=== PATIENT | female | born 1985 | race Asian ===

== ENCOUNTER 2020-04-21 12:22 | Day surgery (SDC) | payer OTHER ==
[~2020-04-21] VITALS: Ht 167.6 cm; Wt 68.9 kg
[~2020-04-21 12:22] MED LIST: LR 1,000 ML IV ONE
[2020-04-21 13:05] LABS: HEMATOCRIT 41.9 % (36.0-47.0); HEMOGLOBIN 14.1 g/dl (12.0-15.5); MEAN CORPUSCULAR HEMOGLOBIN 31.5 pg (27.0-33.0); MEAN CORPUSCULAR HGB CONC 33.7 g/dl (32.0-36.5); MEAN CORPUSCULAR VOLUME 93.5 fl (80.0-96.0); PLATELET COUNT, AUTOMATED 256 10^3/uL (150-450); RED BLOOD COUNT 4.48 10^6/uL (4.00-5.40); WHITE BLOOD COUNT 6.5 10^3/uL (4.0-10.0)
[2020-04-21 13:29] LABS: HCG, SERUM QUALITATIVE NEGATIVE (NEGATIVE)
[2020-04-21] MEDS ORDERED: ONDANSETRON 4MG/2ML VIAL As Ordered ONE (14:23)
[2020-04-21] MEDS ORDERED: METOCLOPRAMIDE INJ 10MG/2ML VIAL (J2765 PER 1) As Ordered ONE (14:23)
[2020-04-21] MEDS ORDERED: LIDOCAINE 2% 100MG/5ML SDV (FOR ANES.) As Ordered ONE (14:23)
[2020-04-21] MEDS ORDERED: propofoL 200 MG/20 ML VIAL As Ordered ONE (14:23)
[2020-04-21] MEDS ORDERED: MIDAZOLAM INJ 2MG/2ML VIAL (J2250 PER 1MG) As Ordered ONE (14:23)
[2020-04-21] MEDS ORDERED: KETOROLAC 60MG 2ML VIAL As Ordered ONE (14:23)
[2020-04-21] MEDS ORDERED: fentaNYL 100 MCG/2 ML INJECTION (J3010) As Ordered ONE (14:24)
[2020-04-21] MEDS ORDERED: SILVER NITRATE APPLICATOR As Ordered ONE ×2 (15:02→15:10)
[2020-04-21] MEDS ORDERED: LR 1,000 ML IV SCH (15:35)
[2020-04-21] MEDS ORDERED: oxyCODONE 5MG TAB PO PRN (15:35)
[2020-04-21] MEDS ORDERED: HYDROMORPHONE HCL 0.5 MG/ 0.5 ML SYRINGE (J1170 PER 1) IV PRN (15:35)
[2020-04-21] MEDS ORDERED: fentaNYL 100 MCG/2 ML INJECTION (J3010) IV PRN (15:35)
[2020-04-21] MEDS ORDERED: KETOROLAC 30 MG/ML 1ML VIAL IV PRN (15:35)
[2020-04-21] MEDS ORDERED: ONDANSETRON 4MG/2ML VIAL IV PRN (15:35)
[2020-04-21 16:50] VITALS: BP 124/74
--- NOTE | 2020-04-21 18:44 | RO ---
OPERATIVE NOTE DATE OF OPERATION: 04/21/2020 PREOPERATIVE DIAGNOSES: 1. Abnormal uterine bleeding. 2. Possible endometrial polyp. POSTOPERATIVE DIAGNOSES: Thickened endometrial lining, otherwise normal endometrial cavity. PROCEDURE: 1. Diagnostic hysteroscopy. 2. Dilation and curettage. SURGEON: Mayank Allison DO YOUTH SERVICES SPECIALIST: None. ANESTHESIA: General. IV FLUIDS: 1 liter. URINE OUTPUT: 200 mL via straight catheterization. EBL: 5 mL. ANTIBIOTICS: None indicated. COMPLICATIONS: None. DETAILED DESCRIPTION OF PROCEDURE: The risks, benefits, indications, and alternatives of the procedure were reviewed with the patient and informed consent was obtained. The patient was taken to the operating room where general anesthesia was obtained without difficulty. The patient was then placed in the lithotomy position using Idris stirrups. The patient was then prepped and draped in usual sterile fashion. The bladder was drained using an in and out catheter. A surgical time out was then performed and the patient's identity and planned procedure were verified with the operative team. A sterile speculum was then placed into the vagina and the cervix was visualized. A single-toothed tenaculum was used to grasp the anterior lip of the cervix. The cervix was then gently serially dilated to a size 12 with a John dilator. The hysteroscope was then primed. The hysteroscope was then advanced through the endocervical canal under direct visualization. After distention of the uterus with warm saline, a systematic examination of the intrauterine cavity was performed. The tubal ostia were visualized bilaterally. The endometrial lining appeared thickened, but there were no discrete polyps identified. The hysteroscope was then removed. Fluid deficit was noted to be 20 mL of saline. A gentle sharp curettage was then performed until a uterine cri was noted in all planes. All tissue obtained was sent to pathology for review. The single-toothed tenaculum was removed and there was noted to be bleeding from the tenaculum sites. These were controlled with [id number] sutures of 0-Vicryl. Silver nitrate was also applied to the tenaculum sites and there was ultimate excellent hemostasis noted. All instruments were then removed from the patient's vagina. The patient tolerated the procedure well. At the completion of the case, the sponge, instrument, and needle counts were correct x2. The patient was taken to the PACU in stable condition. AVTAR
== END 2020-04-21 16:50 | disposition home or self-care (01) ==
LOC: M SDC 12:22
PROVIDERS: ATTEND Obstetrics & Gynecology
DX: N93.9 Abnormal uterine and vaginal bleeding, unspecified (principal); N84.0 Polyp of corpus uteri
CPT/HCPCS: 36415; 58558; 84703; 85027; 88305; J1885; J2250; J2405; J2765; J3010

== ENCOUNTER 2020-08-31 11:50 | Emergency (ER) | payer OTHER ==
[~2020-08-31] VITALS: Ht 165.1 cm; Wt 67.9 kg
[2020-08-31] MEDS ORDERED: NS 1,000 ML IV ONE (14:25)
[2020-08-31 14:56] LABS: BASO % 0.3 % (0.0-1.0); EOS # 0.1 10^3/uL (0.0-0.5); EOS % 0.7 % (0.0-3.0); HEMATOCRIT 39.3 % (36.0-47.0); HEMOGLOBIN 13.3 g/dl (12.0-15.5); LYMPH # 2.1 10^3/uL (1.5-5.0); LYMPH % 27.5 % (24.0-44.0); MEAN CORPUSCULAR HEMOGLOBIN 30.8 pg (27.0-33.0); MEAN CORPUSCULAR HGB CONC 33.8 g/dl (32.0-36.5); MONO # 0.4 10^3/uL (0.0-0.8); NEUTROPHILS # 5.1 10^3/uL (1.5-8.5); NEUTROPHILS % 66.4 % (36.0-66.0); PLATELET COUNT, AUTOMATED 244 10^3/uL (150-450); RED BLOOD COUNT 4.32 10^6/uL (4.00-5.40); WHITE BLOOD COUNT 7.7 10^3/uL (4.0-10.0)
[2020-08-31 15:24] LABS: CK-MB VALUE MASS < 1.0 NG/ML (<3.6); CPK CREATINE PHOSPHOKINASE 65 U/L (26-192); MB/CK RELATIVE INDEX 1.54 (< OR =4); TROPONIN I < 0.02 NG/ML (< 0.10)
--- NOTE | 2020-08-31 15:29 | REP ---
INDICATION: pelvic cramping and dizziness, . COMPARISON: None. TECHNIQUE: Transabdominal obstetric sonography. The patient declined transvaginal scanning. FINDINGS: Uterine dimensions overall or 8.6 x 6.7 x 6.7 cm. There is an intrauterine gestational sac with mean sac size diameter 13 mm. This corresponds with a 6 week 0 day gestational age estimate. There is a fluid collection adjacent to the gestational sac in the uterus. An embryonic pole is seen within the gestational sac, 3.1 mm. Six weeks 0 day size. No motion or cardiac motion was observed on transabdominal imaging. The patient declined transvaginal imaging. There is a 2.2 x 2.3 cm cyst in the maternal right ovary. Moderate amount of free fluid is seen in the cul-de-sac. Right ovarian dimensions are 4.5 x 2.2 x 3.2 cm inclusive of the cyst. Normal Doppler flow is seen in the right ovary. The left ovary could not be visualized. IMPRESSION: There is an intrauterine gestational sac with an adjacent subchorionic fluid collection. 6 weeks 0 day estimate based on crown-rump length and mean sac size diameter. No motion or cardiac motion is observed. viability cannot be confirmed. Consider follow-up sonography and/or clinical follow-up. Mild to moderate cul-de-sac fluid. <Electronically signed by Gabriel Espinoza > 08/31/20 [id number]
[2020-08-31 15:54] LABS: ALBUMIN 4.3 GM/DL (3.2-5.2); ALT/SGPT 19 U/L (12-78); BLOOD UREA NITROGEN 10 MG/DL (7-18); CALCIUM LEVEL 9.1 MG/DL (8.5-10.1); CARBON DIOXIDE LEVEL 25 MEQ/L (21-32); CHLORIDE LEVEL 105 MEQ/L (98-107); CREATININE FOR GFR 0.67 MG/DL (0.55-1.30); GLOMERULAR FILTRATION RATE > 60.0 (>60); GLUCOSE, FASTING 84 MG/DL (70-100); HCG, SERUM QUANTITATIVE 25596 MIU/ML; POTASSIUM SERUM 3.4 MEQ/L (3.5-5.1); SODIUM LEVEL 138 MEQ/L (136-145); TOTAL PROTEIN 7.9 GM/DL (6.4-8.2)
[2020-08-31] MEDS ORDERED: MACR100C43 PO (16:36)
[2020-08-31 16:59] VITALS: BP 117/89
--- NOTE | 2020-08-31 20:39 | ECGEPIP ---
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
== END 2020-08-31 17:00 | disposition home or self-care (01) ==
LOC: M ED 11:50
DX: O23.41 Unspecified infection of urinary tract in pregnancy, first trimester (principal); O26.891 Other specified pregnancy related conditions, first trimester; R10.2 Pelvic and perineal pain; R42 Dizziness and giddiness; R00.1 Bradycardia, unspecified; Z3A.00 Weeks of gestation of pregnancy not specified

== ENCOUNTER → 2020-12-01 | Outpatient (CLI) | payer OTHER ==
[~2020-12-01] MED LIST changes: -LR 1,000 ML IV ONE; +MACR100C43 PO
--- NOTE | 2020-12-01 14:37 | REP ---
INDICATION: ANATOMY. COMPARISON: 08/31/2020. TECHNIQUE: Real-time sonographic evaluation of the gravid uterus performed. FINDINGS: Estimated gestational age is18 weeks 6 days, EDC 04/28/2021. Today's measurements indicate appropriate growth. Presentation: Breech Placenta anterior to the left, grade 1, without evidence of placenta previa. heart rate was not recorded by the technologist, but heart motion was visualized. Amniotic fluid is subjectively normal. Closed cervical length is measured at 3.1 cm. Biometry chart: BPD: 43 mm, 19 weeks 1 days, 56th percentile. HC: 167 mm, 19 weeks 3 days, 64th percentile AC: 139 mm, 19 weeks 2 days, 58th percentile Femur length: 30 mm, 19 weeks 3 days, 62nd percentile HC to AC ratio: 1.20, normal range 1.07-1.26. Estimated weight: 286g, 71st percentile. anatomy: Cranium: Grossly normal Lateral Ventricles/Choroid Plexus: Grossly normal Posterior Fossa/Cerebellum: Grossly normal Nose/lips/profile: Grossly normal Four chamber heart: Grossly unremarkable but not optimally visualized Right ventricular outflow tract: Grossly unremarkable but not optimally visualized Left ventricular outflow tract: Echogenic foci in left ventricle and atrium likely due to chordae tendinae and papillary muscles. Left-sided stomach: Grossly normal Kidneys: Grossly normal Bladder: Grossly normal Cord Insertion: Grossly normal 3 vessel cord: Grossly normal Spine: Grossly normal IMPRESSION: Viable single intrauterine gestation as above. <Electronically signed by Alexander Teresa > 12/01/20 [id number]
== END ==
LOC: M RAD 13:28
PROVIDERS: ATTEND Registered Nurse Maternal Newborn
DX: Z34.82 Encounter for supervision of other normal pregnancy, second trimester (principal); Z3A.18 18 weeks gestation of pregnancy